=== PATIENT | male | born 1970 | race Two or more races ===

== ENCOUNTER 2018-09-30 11:58 | Emergency (ER) | payer OTHER ==
[~2018-09-30] VITALS: Ht 157.5 cm; Wt 70.0 kg
[2018-09-30 12:15] VITALS: BP 131/82
[2018-09-30] MEDS ORDERED: IBUPROFEN 200 MG TABLET ONE (12:30)
[2018-09-30] MEDS ORDERED: IBUPROFEN 200 MG TABLET PO ONE (12:30)
[2018-09-30] MEDS ORDERED: PLEASE ENTER ALLERGIES MC SCH (13:00)
== END 2018-09-30 13:43 | disposition home or self-care (01) ==
LOC: ED 13:39
DX: S92.515A Nondisplaced fracture of proximal phalanx of left lesser toe(s), initial encounter for closed fracture (principal); X58.XXXA Exposure to other specified factors, initial encounter; Y93.66 Activity, soccer; Y92.009 Unspecified place in unspecified non-institutional (private) residence as the place of occurrence of the external cause; Y99.8 Other external cause status
CPT/HCPCS: 99283